=== PATIENT | female | born 1980 | race American Indian/Alaskan Native ===

== ENCOUNTER 2019-10-06 10:13 | Day surgery (SDC) | payer BC, MEDICAID ==
[2019-10-06] MEDS ORDERED: BACTERIOSTATIC SODIUM CHLORIDE 0.9% 30 ML VIAL INFILTRATI ONE (11:14)
--- NOTE | 2019-10-06 11:36 | Anesthesia Day of Surgery ---
Anesthesia Day of Surgery - Day of Surgery Patient Examined: Yes Patient H&P Reviewed: Yes Patient is NPO: Yes
--- NOTE | 2019-10-06 11:36 | Anesthesia Consultation ---
Anesthesia Consult and Med Hx Date of service: 10/06/19 - Airway Anesthetic Teeth Evaluation: Good ROM Head & Neck: Adequate Mental/Hyoid Distance: Adequate Mallampati Class: Class II Intubation Access Assessment: Good - Pulmonary Exam CTA: Yes - Cardiac Exam Cardiac Exam: RRR - Pre-Operative Health Status ASA Pre-Surgery Classification: ASA1 Proposed Anesthetic Plan: General
[2019-10-06] MEDS ORDERED: ONDANSETRON 4 MG/2 ML INJ IV PRN (11:37)
[2019-10-06] MEDS ORDERED: SILVER NITRATE APPLICATOR 1 EA TP ONE (11:52)
[2019-10-06] MEDS ORDERED: METHYLERGONOVINE MALEATE 0.2 MG/ML VIAL IM ONE ×2 (11:52→12:55)
[2019-10-06] MEDS ORDERED: MIDAZOLAM 2 MG/2 ML INJ IV NR (12:00)
[2019-10-06] MEDS ORDERED: LACTATED RINGERS 1,000 ML IV SCH (12:00)
[2019-10-06] MEDS ORDERED: miSOPROStol 200 MCG TAB ONE (12:06)
[2019-10-06] MEDS ORDERED: PROPOFOL 200 MG/20 ML VIAL IV ONE (12:37)
[2019-10-06] MEDS ORDERED: fentaNYL 100 MCG/2 ML INJ ONE (12:37)
[2019-10-06] MEDS ORDERED: ONDANSETRON 4 MG/2 ML INJ ONE (12:45)
[2019-10-06] MEDS ORDERED: dexAMETHasone 20 MG/5 ML VIAL ONE (12:45)
[2019-10-06] MEDS ORDERED: LIDOCAINE MPF (2%) 20 MG/1 ML VIAL 5 ML ONE (12:45)
[2019-10-06] MEDS ORDERED: SODIUM CHLORIDE 0.9% IRR 1,500 ML BOTTLE IR ONE (13:00)
[2019-10-06] MEDS: HYDROmorphone 1 MG/1 ML INJ IV PRN ×4 (13:31→14:07)
--- NOTE | 2019-10-06 13:38 | Operative Report ---
Operative Report Operative Report: DATE OF OPERATION: 10/06/19 PREOPERATIVE DIAGNOSIS: Molar POSTOPERATIVE DIAGNOSIS: Molar OPERATION PERFORMED: Dilation and curettage. SURGEON: Parris Case MD, ASSISTANTS: None. ANESTHESIA: General endotracheal anesthesia. INDICATIONS FOR OPERATION: The patient is a 39-year-old who presented today with history with abnormal US with Molar . The patient was seen in the clinic where she was found to have dilated cervix and US shows abnormal placenta with nultiple cystic areas, and quant in 200,000. There was no evidence of products of conception or passage of products of conception from the vagina. The patient was counseled at that time for expectant management and dilation and curettage to evacuate the uterus and the patient choose to have the D&C. OPERATIVE FINDINGS: Pertinent findings at the time of procedure are products of conception at the internal os. Specimens removed were contents of uterus. Estimated blood loss 500 mL. No complications. DESCRIPTION OF PROCEDURE: The patient was taken from the preoperative holding area to the operating room. Prior to the procedure, the patient was fully counseled as to the risks, benefits, indications, and options for the procedure, to which the patient agreed. The patient was placed supine on the operating room table. General endotracheal anesthesia was administered, and once adequate anesthesia was demonstrated, the patients legs were then placed in candy cane stirrups. The patient was then prepped and draped in the standard surgical fashion for D&C. The patient was placed in 10 degrees of Trendelenburg. The bladder was then decompressed. A weighted speculum was placed in the posterior vagina and cervix was grasped with single tooth tenaculum. Uterus sounded to 13cm. The cervix was then serially dilated with Hanks dilator. An 12 cm curved suction curette was then introduced and a suction curettage was performed. Once all products of conception were evacuated, a sharp curettage was performed until a gritty surface was appreciated on all four quadrants of the uterus. No further bleeding was noted. Products of conception were then examined on the back table, which was grossly consistent with products of conception. The patient tolerated the procedure and anesthesia well, was awakened from anesthesia without complications and was transported to the recovery room in stable condition. US used for prior to case and post case with visualization of the entire products removed
--- NOTE | 2019-10-06 13:51 | Post Anesthesia Evaluation ---
- Post Anesthesia Evaluation Patient Participated: Yes Airway Patent: Yes Stable Respiratory Function: Yes Nausea/Vomiting: No Temp > 96.8F: Yes Pain Manageable: Yes Adequeate Hydration: Yes Anesthesia Complications: No Block Receding Appropriately: Not Applicable Patient on Ventilator: No
[2019-10-06 15:53] VITALS: BP 118/73
--- NOTE | 2019-10-07 01:11 | Ultrasound Report ---
Intraoperative ultrasound Study is performed for technical services only. Signer Name: Tim Butler MD Signed: 10/07/2019 1:07 AM Workstation Name: [id number]
== END 2019-10-06 15:37 | disposition home or self-care (01) ==
LOC: OR 10:13
PROVIDERS: ATTEND Obstetrics & Gynecology
DX: O01.9 Hydatidiform mole, unspecified (principal); Z79.899 Other long term (current) drug therapy; Z91.013 Allergy to seafood; Z91.040 Latex allergy status
CPT/HCPCS: 59870; 76998; 86850; 86900; 86901; 88305; 88342; J1100; J1170; J2210; J2250; J2405; J2704; J3010; J7120